=== PATIENT | female | born 1985 ===

== ENCOUNTER 2018-10-20 09:37 | Outpatient (CLI) | payer SELFPAY | END 2018-10-20 09:38 | disposition home or self-care (01) | LOC: C.USIC 09:37 ==

== ENCOUNTER 2018-11-26 12:27 | Outpatient (CLI) | payer OTHER | END 2018-11-26 12:28 | disposition home or self-care (01) | LOC: C.MRIC 12:28 ==

== ENCOUNTER 2018-11-29 18:40 | Emergency (ER) | payer OTHER ==
[2018-11-29 18:41] VITALS: BMI 38.0
[2018-11-29 19:00] VITALS: RESP 18
[2018-11-29 19:50] LABS: HCG,QUALITATIVE URINE NEGATIVE (NEGATIVE)
[2018-11-29 19:51] LABS: SQUAMOUS EPITHIAL 3 /hpf (0-5); URINE BACTERIA RARE (<OCC); URINE BILIRUBIN NEGATIVE (NEGATIVE); URINE BLOOD 1+ (NEGATIVE); URINE CLARITY Clear (Clear); URINE COLOR Yellow (YELLOW); URINE GLUCOSE (UA) NORMAL (Normal); URINE LEUKOCYTE ESTERASE NEG Leu/uL (Negative); URINE PROTEIN NEGATIVE (NEGATIVE); URINE UROBILINOGEN NORMAL mg/dL (0.2-1.0)
--- NOTE | 2018-11-29 20:34 | C.PDOC ---
History Of Present Illness 33 y/o female with a PMHx of ovarian cysts, presents to the ED complaining of pelvic pain, worse for the past week. Patient admits current pain feels the same as prior episodes of ovarian cyst pain, which she has had for 5 years. Patient denies any hx of STDs or ulcers. She also denies abnormal vaginal discharge, bleeding, nausea, vomiting, diarrhea, rashes, abdominal pain, dysuria, frequency, fevers, chills, night sweats, enuresis, encopresis, or saddle anesthesia. LMP was 11/23/18 and was normal. Patient saw her PMD on the and states she was told she has ovarian cyst pain. 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 Time Seen by Provider: 11/29/18 19:34 Chief Complaint (Nursing): Abdominal Pain History Per: Patient History/Exam Limitations: no limitations Onset/Duration Of Symptoms: Worse Since (1 week ago) Current Symptoms Are (Timing): Still Present Quality Of Discomfort: "Pain" Abnormal Vaginal Bleeding: No Last Menstral Period: 11/23/18 Past Medical History Reviewed: Historical Data, Nursing Documentation, Vital Signs Vital Signs: Last Vital Signs Temp 98.4 F 11/29/18 18:58 Pulse 63 11/29/18 18:58 Resp 18 11/29/18 18:58 BP 121/73 11/29/18 18:58 Pulse Ox 98 11/29/18 18:58 - Medical History PMH: No Chronic Diseases Surgical History: (x 2) - [facility] Procedures D & C NEC (08/11/13) INFLUENZA VACCINATION (10/01/14) LOW CERVICAL (10/01/14) Family History: States: Unknown Family Hx - Social History Hx Tobacco Use: No Hx Alcohol Use: No Hx Substance Use: No - Immunization History Hx Tetanus Toxoid Vaccination: Yes Hx Influenza Vaccination: Yes Hx Pneumococcal Vaccination: No Review Of Systems Constitutional: Negative for: Fever, Chills, Sweats Eyes: Negative for: Vision Change Cardiovascular: Negative for: Chest Pain Respiratory: Negative for: Shortness of Breath Gastrointestinal: Negative for: Nausea, Vomiting, Diarrhea, Constipation Genitourinary: Positive for: Pelvic Pain. Negative for: Dysuria, Frequency, Incontinence, Vaginal Discharge, Vaginal Bleeding Musculoskeletal: Positive for: Back Pain Skin: Negative for: Rash Neurological: Negative for: Weakness, Numbness, Dizziness Physical Exam - Physical Exam Appears: Non-toxic, No Acute Distress Skin: Warm, Dry Head: Normacephalic Eye(s): bilateral: Normal Inspection, PERRL, EOMI Oral Mucosa: Moist Neck: Trachea Midline, Supple, Other (No meningeal signs- negative kernig's and brudzinskis) Chest: Symmetrical Cardiovascular: Rhythm Regular, No Friction Rub Respiratory: No Rales, No Rhonchi, No Wheezing Gastrointestinal/Abdominal: Soft, Tenderness (suprapubic), No Guarding, No Rebound Back: Normal Inspection (no skin changes), No Vertebral Tenderness, Paraspinal Tenderness (mild left paraspinal) Extremity: Bilateral: Normal Color And Temperature, Normal ROM (x 4) Pulses: Left Dorsalis Pedis: Normal, Right Dorsalis Pedis: Normal Neurological/Psych: Oriented x3 Gait: Steady ED Course And Treatment - Laboratory Results Result Diagrams: 11/29/18 20:38 11/29/18 20:38 Lab Results: Urine Color Yellow (YELLOW) 11/29/18 19:41 Urine Clarity Clear (Clear) 11/29/18 19:41 Urine pH 5.0 (5.0-8.0) 11/29/18 19:41 Ur Specific [place] 1.018 (1.003-1.030) 11/29/18 19:41 Urine Protein Negative mg/dL (NEGATIVE) 11/29/18 19:41 Urine Glucose (UA) Normal mg/dL (Normal) 11/29/18 19:41 Urine Ketones Negative mg/dL (NEGATIVE) 11/29/18 19:41 Urine Blood 1+ (NEGATIVE) H 11/29/18 19:41 Urine Nitrate Negative (NEGATIVE) 11/29/18 19:41 Urine Bilirubin Negative (NEGATIVE) 11/29/18 19:41 Urine Urobilinogen Normal mg/dL (0.2-1.0) 11/29/18 19:41 Ur Leukocyte Esterase Neg Mallory/uL (Negative) 11/29/18 19:41 Urine WBC (Auto) < 1 /hpf (0-5) 11/29/18 19:41 Urine RBC (Auto) 4 /hpf (0-3) H 11/29/18 19:41 Ur Squamous Epith Cells 3 /hpf (0-5) 11/29/18 19:41 Urine Bacteria Rare (<OCC) 11/29/18 19:41 Urine HCG, Qual Negative (NEGATIVE) 11/29/18 19:41 Urine HCG, Qual Negative (NEGATIVE) 11/29/18 19:41 Urine POC: Negative O2 Sat by Pulse Oximetry: 98 (on RA) Pulse Ox Interpretation: Normal - CT Scan/US pelvic/transvaginal US Other Rad Studies (CT/US): Read By Radiologist, Radiology Report Reviewed CT/US Interpretation: EXAM: US Pelvis, Complete Transvaginal and Transabdominal. COMPARISON: None provided. CLINICAL HISTORY: Pelvic pain. TECHNIQUE: Transvaginal and transabdominal pelvic ultrasound (complete) with image documentation. FINDINGS: ENDOMETRIUM: Normal thickness measuring 7.6 mm in AP dimension. UTERUS/CERVIX: The uterus is retroverted in position and nor mal in size measuring approximately 7.9 x 4.6 x 5.4 cm in longitudinal, AP and transverse dimensions respectively. A tiny 5.0 mm heterogeneous solid is noted in the lateral left uterine body thought possibly compatible with a tiny fibroid. RIGHT OVARY: Normal Doppler flow. A 9.0 x 6.0 mm hyperechoic focus is seen in the right ovary thought compatible with a hemorrhagic cyst. A few tiny follicles are also present. LEFT OVARY: Normal Doppler flow. No abnormal mass. A tiny 3.0 mm calcification is noted in the central left ovary. FREE FLUID: No free fluid. IMPRESSION: 1. Possible 9.0 mm small hemorrhagic cyst within the right ovary. 2. Possible tiny 5.0 mm fibroid in the left lateral uterine body. 3. Otherwise, unremarkable pelvic ultrasound. Medical Decision Making Medical Decision Makin33 y/o female with a PMHx of ovarian cysts, presents to the ED complaining of pelvic pain, worse for the past week. Current pain unchanged from prior episodes of ovarian cyst pain. No abnormal vaginal discharge, bleeding, nausea, vomiting, rashes, abdominal pain, dysuria, frequency, fevers, chills, night sweats, enuresis, encopresis, or saddle anesthesia. Impression: Suprapubic pain, hx of ovarian cyst Initial Plan: - Blood type/screen - CMP - CBC - Urinalysis - Urine HCG - Pelvic/Transvag US - 650 mg PO Tylenol - Reassess 1138 labs largely unremarkable. mild leukocytosis ovarian cyst noted on US and fibroid. pending Pelvic exam 1210 no CMT No cervical d/c or strawberry cervix. No vaginal abnls. No adenexal pain. abd non-ttp on re-exam, pt comfortable in nad, clear for d/c home w/ return indications and f/u Disposition - Disposition Referrals: [facility] [Outside] [facility] [Outside] [facility] [Outside] [facility] [Outside] [facility] [Outside] Disposition: HOME/ ROUTINE Disposition Time: 00:07 Condition: STABLE Additional Instructions: JULIANN WILKINSON, thank you for letting us take care of you today. Your provider was Domenico Ervin and you were treated for LOWER ABDOMINAL PAIN. The emergency medical care you received today was directed at your acute symptoms. If you were prescribed any medication, please fill it and take as directed. It may take several days for your symptoms to resolve. Return to the Emergency Department if your symptoms worsen, do not improve, or if you have any other problems. Please contact your doctor or call one of the physicians/clinics you have been referred to that are listed on the Patient Visit Information form that is included in your discharge packet. Bring any paperwork you were given at [facility] [place] with you along with any medications you are taking to your follow up visit. Our treatment cannot replace ongoing medical care by a primary care provider outside of the emergency department. [facility] care [facility]. If you had an X-Ray or CT scan: A Radiologist will review the ED reading if any change in treatment is needed we will contact you. If you had a blood, urine, or wound culture: It will take several days for the results, if any change in treatment is needed we will contact you. If you had an STI test: It will take 48 hours for the results. Please call after 1 week if you have not heard back. Instructions: Ovarian Cyst (DC) Forms: [facility] (Italian) Print Language: CENTRAL AFRICAN - Clinical Impression Clinical Impression: Ovarian cyst, Fibroid - Scribe Statement The provider has reviewed the documentation as recorded by the Kwadwo Rodriguez Provider Attestation: All medical record entries made by the Nathanielibsamira were at my direction and personally dictated by me. I have reviewed the chart and agree that the record accurately reflects my personal performance of the history, physical exam, medical decision making, and the department course for this patient. I have also personally directed, reviewed, and agree with the discharge instructions and disposition.
[2018-11-29 20:45] LABS: BASO # 0.1 K/uL (0.0-0.2); BASO % 1.1 % (0.0-2.0); EOS # 1.4 K/uL (0.0-0.7); HEMOGLOBIN 12.9 g/dL (11.0-16.0); LYMPH # 4.6 K/uL (1.0-4.3); LYMPH % 35.6 % (20.0-40.0); MEAN CELL VOLUME 81.4 fL (81.0-99.0); MEAN CORPUSCULAR HEMOGLOBIN 26.6 pg (27.0-31.0); MEAN CORPUSCULAR HGB CONC 32.7 g/dL (33.0-37.0); MEAN PLATELET VOLUME 8.5 fL (7.2-11.7); MONO # 0.5 K/uL (0.0-0.8); MONO % 4.1 % (0.0-10.0); NEUT # 6.2 K/uL (1.8-7.0); NEUT % 48.2 % (50.0-75.0); RBC 4.84 Mil/uL (3.80-5.20); RED CELL DISTRIBUTION WIDTH 15.1 % (11.5-14.5); WHITE BLOOD COUNT 12.8 K/uL (4.8-10.8)
[2018-11-29 20:58] LABS: ALB/GLOB RATIO 1.7 (1.0-2.1); ALBUMIN 4.8 g/dL (3.5-5.0); ALT/SGPT 14 U/L (9-52); AST/SGOT 20 U/L (14-36); BLOOD UREA NITROGEN 19 mg/dL (7-17); CALCIUM 9.8 mg/dl (8.6-10.4); GFR NON-AFRICAN AMERICAN > 60
[2018-11-30 00:46] VITALS: BP 116/68; PULSE 56; TEMP 98.3; O2SAT 99
--- NOTE | 2018-11-30 10:03 | US ---
Date of service: 11/29/2018 HISTORY: Pelvic pain COMPARISON: 10/20/2018. TECHNIQUE: Transabdominal and transvaginal pelvic ultrasound was performed. FINDINGS: UTERUS: Measures 9.2 x 4.8 x 5.5 cm. Anteverted and normal in size. Normal myometrial echotexture.. There is also a 4 x 5 x 5 mm cystic area in the fundus of the uterus. ENDOMETRIUM: Measures 7.0 mm in diameter. There is a 2 x 2 x 3 mm well-circumscribed round anechoic lesion with hyperechoic rim in the superior endometrium. CERVIX: No cervical abnormality identified. RIGHT OVARY: Measures 3.5 x 1.9 x 3.4 cm. No solid mass. Normal flow. There is a 9 x 6 x 7 mm well-circumscribed round hyperechoic lesion LEFT OVARY: Measures 3.8 x 2.0 x 2.6 cm. No solid mass. Normal flow. FREE FLUID: No significant free fluid noted. OTHER FINDINGS: None. IMPRESSION: 1. small cystic area in the superior endometrium is nonspecific and could represent cystic changes. 2. 5 mm cyst in fundus of the uterus. 3. Stable 9 mm round echogenic lesion in the right ovary, which may represent a hemorrhagic cyst or dermoid. A preliminary report was provided by [facility].
== END 2018-11-30 00:29 | disposition home or self-care (01) ==
LOC: C.ER 18:40
DX: N83.201 Unspecified ovarian cyst, right side (principal); D25.9 Leiomyoma of uterus, unspecified

== ENCOUNTER 2019-01-16 08:58 | Outpatient (CLI) | payer OTHER | END 2019-01-16 08:59 | disposition home or self-care (01) | LOC: C.LAB 08:58 | DX: R10.2 Pelvic and perineal pain (principal) ==

== ENCOUNTER 2019-01-19 09:31 | Outpatient (CLI) | payer OTHER | END 2019-01-19 09:32 | disposition home or self-care (01) | LOC: C.CTH 09:31 | DX: R10.2 Pelvic and perineal pain (principal) ==